=== PATIENT | male | born 1970 | race Caucasian/White ===

== ENCOUNTER 2020-01-27 07:04 | Emergency (ER) | payer OTHER ==
[~2020-01-27] VITALS: Ht 177.8 cm; Wt 72.6 kg
[2020-01-27] MEDS ORDERED: ZPAK PO (07:56)
[2020-01-27] MEDS ORDERED: PREDNISONE 20 M20 M1 PO (07:56)
[2020-01-27 08:01] VITALS: BP 122/59
== END 2020-01-27 08:01 | disposition home or self-care (01) ==
LOC: M.ERS 07:04
DX: U07.1 COVID-19 (principal); Z90.89 Acquired absence of other organs